=== PATIENT | male | born 1990 | race Caucasian/White ===

== ENCOUNTER → 2016-07-13 | Outpatient (CLI) | payer BC ==
[~2016-07-13] MED LIST: AZIT500T3 PO; OPTIRAY 320 IV PRN; RIVA1.5T PO; VBRT100 PO; VNTHFA/IN INH
--- NOTE | 2016-07-13 11:57 | DIAGNOSTIC IMAGING REPORT ---
CT OF THE CHEST WITH IV CONTRAST CLINICAL HISTORY: Hilar lymphadenopathy. COMPARISON STUDY: 05/21/2016 TECHNIQUE: Following the IV administration of 119 mL of Optiray-320, CT of the thorax was performed from the thoracic inlet to the lung bases. Images are reviewed in the axial, sagittal, and coronal planes. IV contrast was administered without complication. CT DOSE: FINDINGS: Thyroid: Imaged portions of the thyroid gland are normal in appearance. Thoracic aorta: The thoracic aorta is normal in course and caliber, noting standard 3-vessel arch anatomy. No aneurysm or dissection is seen. Pulmonary vasculature: The previous identified pulmonary emboli are not visualized on this study however this examination was not performed as angiographic study. HEART: The heart is normal in size and configuration, without pericardial effusion. Lungs and pleural spaces: There are improving left basilar airspace opacities, consistent with a resolving pneumonitis or pulmonary infarct. Mediastinum: There is no mediastinal lymphadenopathy. Ximena: There are minimally prominent hilar lymph nodes, likely reactive. Axilla: Clear. Upper abdomen: Partially visualized upper abdominal viscera is within normal limits. Skeletal structures: There are no lytic or blastic osseous lesions. IMPRESSION: 1. Minimally prominent hilar lymph nodes, likely reactive 2. Significant improvement in the left basilar airspace opacities, consistent with a resolving pneumonitis versus pulmonary infarct. 3. Resolution of the previous identified left pleural effusion Electronically signed by: Edwin Gan M.D. 07/13/2016 11:55 AM Dictated Date/Time: 07/13/2016 11:51 AM
--- NOTE | 2016-07-13 12:07 | DIAGNOSTIC IMAGING REPORT ---
CT OF THE ABDOMEN WITH IV AND ORAL CONTRAST CT DOSE: 2350.01 mGy.cm CLINICAL HISTORY: History of pulmonary emboli, hilar lymphadenopathy and splenomegaly. Evaluate for occult cancer within the abdomen. TECHNIQUE: Axial images of the abdomen were obtained following intravenous injection of 119 cc Optiray 320 IV. Oral contrast was ministered. Please note that the chest will be reported separately. COMPARISON STUDY: None. FINDINGS: The chest will be reported separately. Mild splenomegaly is noted. The liver, adrenal glands, right kidney and pancreas are normal. There is a 1.6 cm cyst within the lower pole of the left kidney. No biliary or pancreatic ductal dilatation is present. The appendix is normal. The caliber and wall thickness of visualized small and large bowel are normal. No enlarged abdominal lymph nodes are present. Prominent ileocolic lymph nodes are within normal limits by size criteria. No suspicious osseous lesions are present. IMPRESSION: 1. No evidence for malignancy within the abdomen. 2. Mild splenomegaly. Electronically signed by: Shilo Lui M.D. 07/13/2016 12:05 PM Dictated Date/Time: 07/13/2016 11:56 AM
== END | disposition home or self-care (01) ==
LOC: C.CTS 10:16
PROVIDERS: ATTEND Family Medicine
DX: R16.1 Splenomegaly, not elsewhere classified (principal); R59.0 Localized enlarged lymph nodes

== ENCOUNTER → 2016-08-24 | Outpatient (CLI) | payer BC, OTHER ==
[~2016-08-24] MED LIST changes: -OPTIRAY 320 IV PRN
--- NOTE | 2016-08-24 07:50 | DIAGNOSTIC IMAGING REPORT ---
BILATERAL LOWER EXTREMITY VENOUS DOPPLER HISTORY: Follow-up left-sided DVT. COMPARISON STUDY: Venous Doppler 05/21/2016. FINDINGS: There is normal compressibility, flow, and augmentation within the bilateral lower extremity deep venous systems. IMPRESSION: No DVT within the right or left lower extremity. Electronically signed by: Luke Oden M.D. 08/24/2016 7:48 AM Dictated Date/Time: 08/24/2016 7:47 AM
== END | disposition home or self-care (01) ==
LOC: C.ULTR 06:53
PROVIDERS: ATTEND Internal Medicine Hematology & Oncology
DX: I26.99 Other pulmonary embolism without acute cor pulmonale (principal); Z86.718 Personal history of other venous thrombosis and embolism

== ENCOUNTER 2017-01-13 21:57 | Emergency (ER) | payer OTHER ==
[~2017-01-13] VITALS: Ht 190.5 cm; Wt 138.1 kg
[~2017-01-13 21:57] MED LIST changes: -VBRT100 PO; -VNTHFA/IN INH
[2017-01-13 22:01] VITALS: TEMP 36.6; Ht 190.5 cm; Wt 138.1 kg
[2017-01-13] MEDS ORDERED: VBRT100 PO (22:19)
[2017-01-13 22:23] VITALS: O2SAT 95
--- NOTE | 2017-01-13 22:41 | DIAGNOSTIC IMAGING REPORT ---
CHEST ONE VIEW PORTABLE CLINICAL HISTORY: CHEST PAIN pain COMPARISON STUDY: 06/13/2016 FINDINGS: The bones soft tissues and hemidiaphragms are normal. The cardiomediastinal silhouette is normal. The lungs are clear. The pulmonary vasculature is normal. IMPRESSION: Negative chest. The above report was generated using voice recognition software. It may contain grammatical, syntax or spelling errors. Electronically signed by: Jori Ragland M.D. 01/13/2017 10:39 PM Dictated Date/Time: 01/13/2017 10:39 PM
[2017-01-13 22:45] LABS: BASO % 0.4 %; BASO ABS # 0.04 K/uL (0-0.2); COMPLETE YES; EOS % 1.5 %; HEMATOCRIT 45.1 % (42-52); IG% 0.5 %; LYMPH ABS # 3.26 K/uL (1.2-3.4); MEAN CELL VOLUME 86.2 fL (80-100); MEAN CORPUSCULAR HEMOGLOBIN 29.3 pg (25-34); MEAN CORPUSCULAR HGB CONC 33.9 g/dl (32-36); MEAN PLATELET VOLUME 10.1 fL (7.4-10.4); MONO % 9.5 %; NEUT % 55.1 %; PLATELET COUNT 250 K/uL (130-400); RED BLOOD COUNT 5.23 M/uL (4.7-6.1); WHITE BLOOD COUNT 9.89 K/uL (4.8-10.8)
[2017-01-13 22:49] LABS: POINT OF CARE TROPONIN I < 0.030 ng/ml (0-0.045)
[2017-01-13 23:11] LABS: ALT/SGPT 39 U/L (12-78); BLOOD UREA NITROGEN 22 mg/dl (7-18); BUN/CREATININE RATIO 18.7 (10-20); CALCIUM 9.3 mg/dl (8.5-10.1); CARBON DIOXIDE 29 mmol/L (21-32); CHLORIDE 108 mmol/L (98-107); GLUCOSE 73 mg/dl (70-99); POTASSIUM 4.4 mmol/L (3.5-5.1); SODIUM 143 mmol/L (136-145)
[2017-01-13 23:14] LABS: ALKALINE PHOSPHATASE 61 U/L (45-117); AST/SGOT 20 U/L (15-37)
--- NOTE | 2017-01-13 23:56 | EMERGENCY ROOM VISIT NOTE ---
History First contact with patient: 22:03 Chief Complaint: CALF PAIN Stated Complaint: RIGHT CALVE TIGHT History of Present Illness The patient is a 26 year old male who presents to the Emergency Room with complaints of right calf pain and discomfort for the past few days with upper back discomfort for the past few days. Patient has a history of PE. He is no longer on anticoagulants. He had the PE in the past due to prolonged driving and smoking. 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 Pain is described as aching, ranging in severity 5 out of 10. Nothing makes it better or worse. Patient was occasional chest discomfort/fluttering but nothing prolonged. Patient denies exertional chest pain, dyspnea, abdominal pain, diaphoresis, history of heart disease. No fever no chills. No numbness or tingling. Review of Systems See HPI for pertinent positives & negatives. A total of 10 systems reviewed and were otherwise negative. Past Medical/Surgical History Medical Problems: (1) Asthma (2) Bilateral pulmonary embolism (3) No significant medical problems (4) Puncture wound of left foot Surgical Problems: (1) S/P tonsillectomy and adenoidectomy Family History Diabetes mellitus Hypertension Seizures Social History Smoking Status: Current Some Day Smoker Alcohol Use: none Drug Use: none Marital Status: single Housing Status: lives with family Occupation Status: employed Current/Historical Medications Scheduled Doxycycline Hyclate (Doxycycline Hyclate), 100 MG PO BID Physical Exam Vital Signs Date Time Temp Pulse Resp B/P (MAP) Pulse Ox O2 Delivery O2 Flow Rate FiO2 01/13/17 23:19 79 16 117/47 96 Room Air 01/13/17 22:35 81 01/13/17 22:23 95 Room Air 01/13/17 22:01 36.6 92 18 146/78 95 Room Air Physical Exam VITALS: Vitals are noted on the nurse's note and reviewed by myself. Vital signs hypertensive GENERAL: Pleasant male, in no acute distress, nondiaphoretic, well-developed well-nourished. SKIN: The skin was without rashes, erythema, edema, or bruising. There is no tenting of the skin. Capillary reflex less than 2 seconds. HEAD: Normocephalic atraumatic. EARS: External auditory canals clear, tympanic membranes pearly gamino without erythema or effusion bilaterally. EYES: Pupils equal round and reactive to light and accommodation. Conjunctivae without injection, sclerae without icterus. Extraocular movements intact. NOSE: Patent, turbinates without inflammation or discharge. MOUTH: Mucous membranes moist. Pharynx without erythema or exudate. Uvula midline. Airway patent. Tongue does not deviate. NECK: Supple without nuchal rigidity. No lymphadenopathy. No thyromegaly. Cervical spine is nontender. No JVD. HEART: Regular rate and rhythm without murmurs gallops or rubs. LUNGS: Clear to auscultation bilaterally without wheezes, rales or rhonchi. No dullness to percussion. No retractions or accessory muscle use. ABDOMEN: Positive bowel sounds x 4. Normal tympanic percussion. Soft, nontender, without masses or organomegaly. Hayes sign negative. No guarding or rebound tenderness. MUSCULOSKELETAL: No muscle atrophy, erythema, or edema noted. Right calf slightly tender to palpation. NEURO: Patient was alert and oriented to person place and time. Normal sensation to light and sharp touch. No focal neurological deficits. Medical Decision & Procedures Laboratory Results 01/13/17 22:24 Red Blood Count 5.23, Mean Corpuscular Volume 86.2, Mean Corpuscular Hemoglobin 29.3, Mean Corpuscular Hemoglobin Concent 33.9, Mean Platelet Volume 10.1, Neutrophils (%) (Auto) 55.1, Lymphocytes (%) (Auto) 33.0, Monocytes (%) (Auto) 9.5, Eosinophils (%) (Auto) 1.5, Basophils (%) (Auto) 0.4, Neutrophils # (Auto) 5.45, Lymphocytes # (Auto) 3.26, Monocytes # (Auto) 0.94, Eosinophils # (Auto) 0.15, Basophils # (Auto) 0.04 01/13/17 22:24 Test 01/13/17 22:24 01/13/17 22:30 White Blood Count 9.89 K/uL (4.8-10.8) Red Blood Count 5.23 M/uL (4.7-6.1) Hemoglobin 15.3 g/dL (14.0-18.0) Hematocrit 45.1 % (42-52) Mean Corpuscular Volume 86.2 fL (80-100) Mean Corpuscular Hemoglobin 29.3 pg (25-34) Mean Corpuscular Hemoglobin Concent 33.9 g/dl (32-36) Platelet Count 250 K/uL (130-400) Mean Platelet Volume 10.1 fL (7.4-10.4) Neutrophils (%) (Auto) 55.1 % Lymphocytes (%) (Auto) 33.0 % Monocytes (%) (Auto) 9.5 % Eosinophils (%) (Auto) 1.5 % Basophils (%) (Auto) 0.4 % Neutrophils # (Auto) 5.45 K/uL (1.4-6.5) Lymphocytes # (Auto) 3.26 K/uL (1.2-3.4) Monocytes # (Auto) 0.94 K/uL (0.11-0.59) Eosinophils # (Auto) 0.15 K/uL (0-0.5) Basophils # (Auto) 0.04 K/uL (0-0.2) RDW Standard Deviation 42.1 fL (36.4-46.3) RDW Coefficient of Variation 13.4 % (11.5-14.5) Immature Granulocyte % (Auto) 0.5 % Immature Granulocyte # (Auto) 0.05 K/uL (0.00-0.02) Anion Gap 6.0 mmol/L (3-11) Est Creatinine Clear Calc Drug Dose 142.2 ml/min Estimated GFR () 97.5 Estimated GFR (Non- 84.1 BUN/Creatinine Ratio 18.7 (10-20) Calcium Level 9.3 mg/dl (8.5-10.1) Total Bilirubin 0.3 mg/dl (0.2-1) Direct Bilirubin < 0.1 mg/dl (0-0.2) Aspartate Amino Transf (AST/SGOT) 20 U/L (15-37) Alanine Aminotransferase (ALT/SGPT) 39 U/L (12-78) Alkaline Phosphatase 61 U/L (45-117) Total Protein 7.6 gm/dl (6.4-8.2) Albumin 4.0 gm/dl (3.4-5.0) Bedside D-Dimer 165 ng/mlFEU (0-450) Bedside Troponin I < 0.030 ng/ml (0-0.045) ED Course Prior records reviewed and summarized above. Triage Nursing notes reviewed. Additional history obtained from the family. The patient's history was concerning for swelling and pain in the leg. Differential diagnosis: Etiologies such as PE, DVT, musculoskeletal, infection, joint effusion, trauma, lymphedema, idiopathic, CHF, as well as others were entertained.. Physical examination: The physical examination revealed no signs of infection. Neurovascularly intact. ER treatment provided: Patient was observed On reassessment the patient felt better. Diagnostics interpreted by me: EKG: Normal sinus, normal intervals, no acute ST-T wave changes. Impression normal sinus rhythm interpreted by myself The labs revealed negative d-dimer and troponin Negative troponin. Stable H&H Imaging studies: Ultrasound negative for DVT per radiology CHEST ONE VIEW PORTABLE CLINICAL HISTORY: CHEST PAIN pain COMPARISON STUDY: 06/13/2016 FINDINGS: The bones soft tissues and hemidiaphragms are normal. The cardiomediastinal silhouette is normal. The lungs are clear. The pulmonary vasculature is normal. IMPRESSION: Negative chest. This appears to be consistent with calf pain most likely muscle skeletal in etiology along with upper back pain. Patient was neurovascularly and neurologically intact. He is well-appearing. Stable vital signs. Patient is a negative d-dimer and ultrasound. Unremarkable workup as above. He was advised to stretch the area out and take frequent breaks and walk while driving truck. He was advised follow-up family care in a few days or here in the ER sooner for chest pain, difficulty breathing, worsening signs or symptoms or as needed. By the evaluation outlined above emergent etiologies such as DVT, septic joint, trauma, infection, CHF, as well as others were deemed relatively unlikely. The pt informed about the findings as listed above. All questions were answered and pleased with the treatment. Return instructions were outlined and the patient was discharged in stable condition. Referral: The patient was referred back to their primary care physician for follow-up in 2 to 3 days for a recheck of the current condition. Case reviewed with my Attending. Medical Decision as above Medication Reconcilliation Current Medication List: was personally reviewed by me Impression Primary Impression: Right calf pain Additional Impression: Strain of thoracic spine Departure Information Dispostion Home / Self-Care Condition GOOD Referrals No Doctor, Assigned (PCP) Patient Instructions [facility] Additional Instructions Ibuprofen(Motrin, Advil) may be used for fever or pain. Use 600mg every six hours as needed. Take with food. Avoid using more than 2400mg in a 24 hour period. Do not use 2400mg per day for more than three consecutive days without physician direction. Prolonged inappropriate use can lead to stomach upset or ulcers. (AND/OR) Acetaminophen(Tylenol) may be used for fever or pain. Use 1000mg every six hours as needed. Avoid using more than 3000mg in a 24 hour period. Rest and drink plenty of fluids as tolerated. Continue current medications. Stretch your calf and back out. Monitor your blood pressure. Take frequent breaks while driving and walk around to stretch your legs. Return to the ER immediately for chest pain, abdominal pain, vomiting, fevers, chest pains, difficulty breathing, worsening of your condition, or as needed. Follow up with your primary physician in 2-3 days for a recheck of your current condition. Problem Qualifiers
[2017-01-14 00:06] VITALS: BP 129/51; PULSE 82; O2SAT 96
--- NOTE | 2017-01-14 06:36 | DIAGNOSTIC IMAGING REPORT ---
BILATERAL LOWER EXTREMITY VENOUS DOPPLER CLINICAL HISTORY: Right calf pain, hx PEs COMPARISON STUDY: Lateral extremity venous Doppler August 24, 2016. TECHNIQUE: Sonography of the deep venous system of the bilateral lower extremities was performed. Compression and augmentation were evaluated. FINDINGS: The bilateral common femoral, superficial femoral and popliteal veins were compressible. Augmentation was normal. Flow was shown within the deep calf vessels. IMPRESSION: No evidence of deep venous thrombus within the bilateral lower extremities. Electronically signed by: Shilo Lui M.D. 01/14/2017 6:35 AM Dictated Date/Time: 01/14/2017 6:34 AM
== END 2017-01-14 00:07 | disposition home or self-care (01) ==
LOC: C.EDB 21:59 → C.EDC 01-14 00:07
DX: M79.661 Pain in right lower leg (principal); S39.012A Strain of muscle, fascia and tendon of lower back, initial encounter; X58.XXXA Exposure to other specified factors, initial encounter; Z86.711 Personal history of pulmonary embolism; J45.909 Unspecified asthma, uncomplicated; Z83.3 Family history of diabetes mellitus; Z82.49 Family history of ischemic heart disease and other diseases of the circulatory system; F17.210 Nicotine dependence, cigarettes, uncomplicated

== ENCOUNTER → 2017-08-28 | Outpatient (CLI) | payer BC ==
[~2017-08-28] MED LIST changes: -AZIT500T3 PO; -RIVA1.5T PO; +VBRT100 PO
== END | disposition home or self-care (01) ==
LOC: C.LABSPEC 17:06
PROVIDERS: ATTEND Urology
DX: R30.0 Dysuria (principal)

== ENCOUNTER → 2017-11-09 | Outpatient (CLI) | payer BC ==
--- NOTE | 2017-11-10 04:15 | PAP/PSG TECHNICIAN REPORT ---
[facility] Assistant Cook Polysomnogram Report Study name: None Report date: 11/10/2017 Study date: 11/09/2017 Referring Physician: Maritza Wilkes PA-C Name: CHATO VILLAGOMEZ Interpreting Physician: Denilson Alvarado D.O. Date of : 1990 Assistant Cook: NILAM Waddell. Sex: Male Age: 27 Study Type: PSG Weight: 303 lbs 17 in Height: 27 years, Height 6' 3" Neck Circum: BMI: 37.87 Medications: DOXYCYCLINE 100 MG Patient History 27 yr-old male here for a baseline/split study. He had a home sleep test that came back inconclusive. He denies daytime sleepiness and does not know if he snores. His [place] scale is 3. The test was started on room air. ETCO2 testing was not utilized during this study. He requested to get up at 3:30 am for work. Room 1 Parameters Monitored NPSG: E1-M2, E2-M1, Fp1-M2, Fp2-M1, F3-M2, F4-M2, F4-M1, C3-M2, C4-M2, C4-M1, O1-M2, O2-M2, O2-M1, T3-M2, T4-M1, P3-M2, P4-M1, CHIN1, CHIN2, HR, EKG, Legs, PFLOW, SNOR, FLOW, CFLOW, Tidal Volume, THOR, ABDO, SpO2, PLTH, CPRESS, ETCO2 Wave, ETCO2, pH Sleep Architecture Sleep Stages Time at Lights Off 8:53:58 PM STAGES Time (min.) TST (%) Time at Lights On 3:31:28 AM Wake 56.0 -- Total Recording Time (TRT) 397.50 min. N1 31.5 9 Total Sleep Period (TSP) 363.5 min. N2 268.0 78 Total Sleep Time (TST) 341.5min. N3 5.0 1 Awake Time 56.0 min. REM 37.0 11 Wake after Sleep Onset 22.0 min. Sleep Efficiency (SE) 86 % Sleep Onset Latency (CAREY) 34.0 min. Number of Stage 1 Shifts None Awakenings 8 Stage Changes 61 Number of REM periods 2 REM 37.0 11 REM Latency 89.5 min. NREM 304.5 89 Body Position Analysis Supine Right Left Side Prone Vertical Total Sleep Time (min.) 216.5 12.5 148.6 161.14 0.0 0.0 Total Sleep Time (%) 53% 4% 44% 47 0% N/A% Total Sleep Time REM (min.) 28.0 0.0 9.0 None 0.0 0.0 Total Sleep Time NREM (min.) 152.4 12.5 139.6 None 0.0 0.0 Intermittent Wake (min.) 36.2 12.2 7.6 None 0.0 0.0 Total Sleep Period (%) 51% None None None None None Arousals Myoclonus (PLM) * Events Count Index Events Count Index Spontaneous 18 3 Events Awake (PLMW) 37 39.6 Respiratory 0 0.0 Events Asleep w/ Arousal (PLMA) 1 0.2 PLM 1 0 Events Asleep w/o Arousal (PLMS) 23 4.0 Snoring 2 0 Total Asleep 24 4.2 Total 21 4 Total 61 9 Respiratory Analysis * CA OA MA CH H RERA Total Count 0 0 0 0 4 0 4 Index 0.0 0.0 0.0 0 0.7 0 0.7 Mean Duration 0.0 0.0 0.0 0.00 14.3 0.0 14.3 Longest Duration 0.0 0.0 0.0 0.00 0.0 0.0 17.6 Respiratory Event Summary Total Supine ~Supine Right Left Prone REM NREM Apneas Count 0 0 0 0 0 N/A 0 0 Index 0.0 0 0 0.0 0.0 N/A 0 0 Hypopneas (4% Desat) Count 4 4 0 0 0 N/A 1 3 Index 0.7 1.3 0 0.0 0.0 N/A 1.6 0.6 Apneas & All Hypopneas Count 4 4 0 0 0 N/A 1 3 Index 0.7 1 0 0 0 N/A 1.6 0.6 Respiratory Events (Drain Tile Press Operator+All Hyp+RERA) Count 4 4 0 0 0 N/A 1 3 Index 0.7 1 0 0.0 0.0 N/A 1.6 0.6 Respiratory Related Arousal Count 0 4 0 0 0 N/A 0 0 Index 0.0 0 0 0 0 N/A 0 0 Snoring Analysis Supine Right Left Prone REM NREM Total Snore duration 0.1 min Snores count 4 0 1 N/A 1 4 5 Snore mean duration 1.4 Sec Snores index 1 0 0 N/A 1.6 0.8 0.9 TST with snoring (%) 0.0% Desaturation Event Summary: Minimum %SpO2 Event Count Mean/Min/Max Duration(sec.) Desaturation Index % Time In Bed > 90 9 27.5 / 4.3 / 53.8 1.4 99.8 86 - 90 1 5.3 / 5.3 / 5.3 64.0 0.2 81 - 85 0 N/A 0.0 0.0 76 - 80 0 N/A 0.0 0.0 71 - 75 0 N/A 0.0 0.0 66 - 70 0 N/A 0.0 0.0 61 - 65 0 N/A 0.0 0.0 56 - 60 0 N/A 0.0 0.0 51 - 55 0 N/A 0.0 0.0 < 50 0 N/A 0.0 0.0 Total REM NREM Awake <50% 0.0 min. 0.0 min. 0.0 min. 0.0 min. 51 - 60% 0.0 min. 0.0 min. 0.0 min. 0.0 min. 61 - 70% 0.0 min. 0.0 min. 0.0 min. 0.0 min. 71 - 80% 0.0 min. 0.0 min. 0.0 min. 0.0 min. 81 - 90% 0.9 min. 0.3 min. 0.6 min. 0.0 min. 91 - 100% 396.5 min. 36.7 min. 304.0 min. 55.9 min. Average 93 93 93 94 Minimum SpO2 89 89 90 90 Desaturation Event Index 1.4 3.2 1.2 1.1 # Desat. Events below 89% N/A N/A N/A N/A Time(%) with Saturation below 89% 0.0 0.0 0.0 0.0 Time(min.) with Saturation below 89% 0.0 0.0 0.0 0.0 Time (mins) REM (mins) NREM (mins) % of TST SpO2 Below 90% 1 N/A N1 0.0 SpO2 Below 88% 0 0 0 0 Heart Rate Analysis Min (bpm) Max (bpm) Average (bpm) Awake 52 92 66 NREM 41 87 56 REM 48 72 60 Overall 41 87 57 Supplemental O2 Values Minimum O2 level: None Value Start Time End Time Assistant Cook Comments Mr. Villagomez slept in the right, left, and supine positions. No cardiac arrhythmia or PLMs noted. No bruxism noted. Snoring was noted and scored as a 1 on a scale of 1 through 5. (0=no snoring, 5=snoring loud enough to be heard through a closed door or down the [place] way) He did not meet specific Split-Night criteria during the diagnostic portion of this study. He did not wake up to use the restroom during the night. Mr. Villagomez stated that he slept a little better than usual. He requested to get up at 3:30 am for work. The final report will be interpreted and signed by a sleep physician. The completed physician report will then be placed in the patient medical record. Therapy (cm H2O) 0 TIB (min.) 397.5 TST (min.) 341.5 Sleep Onset (min.) 34.0 REM Onset From Sleep (min.) 89.5 Sleep Efficiency % 86 Wakefulness (%) 14 Wakefulness (min.) 56.0 NREM 1 (%) 9 NREM 1 (min.) 31.5 NREM 2 (%) 78 NREM 2 (min.) 268.0 NREM 3 (%) 1 NREM 3 (min.) 5.0 REM (%) 11 REM (min.) 37.0 # Arousals 21 Arousal Index 4 # Snore 5 Snore Index 0.9 AHI 0.7 AHI Supine 1 AHI Non-Supine 0 NREM AHI 0.6 REM AHI 1.6 RDI 0.7 # Obstructive Apnea 0 # Central Apnea 0 # Mixed Apnea 0 # Hypopneas 4 RERAs 0 Total Respiratory Events 5 Time Below SpO2 89% (min.) 0.0 Mean NREM SpO2 (%) 93 Mean REM SpO2 (%) 93 Mean Sleep SpO2 (%) 93 Min NREM SpO2 (%) 90 Min REM SpO2 (%) 89 Position Supine (min.) 216.5 Position Non-supine (min.) 161.1 LM Index Sleep 4.2 LM Index NREM 3.3 LM Index REM 11.4 Mean Heart Rate (bpm) 57 Min Heart Rate (bpm) 41
== END | disposition home or self-care (01) ==
LOC: C.NEUR 20:00
PROVIDERS: ATTEND Physician Assistant
DX: G47.33 Obstructive sleep apnea (adult) (pediatric) (principal)